=== PATIENT | female | born 1985 | race Caucasian/White ===

== ENCOUNTER 2018-02-04 12:11 | Emergency (ER) | payer BC ==
[~2018-02-04] VITALS: Ht 170.2 cm; Wt 117.9 kg
[2018-02-04] MEDS ORDERED: SERT25 (13:01)
[2018-02-04] MEDS ORDERED: METF500C (13:01)
[2018-02-04] MEDS ORDERED: TRULICITY0.75 MG/0. (13:01)
[2018-02-04] MEDS ORDERED: WALKING BOOT (14:02)
[2018-02-04] MEDS ORDERED: Norco 5-325 Ta1 EACH PO (14:02)
== END 2018-02-04 14:12 | disposition home or self-care (01) ==
LOC: ER 12:11
DX: S92.354A Nondisplaced fracture of fifth metatarsal bone, right foot, initial encounter for closed fracture (principal); W10.9XXA Fall (on) (from) unspecified stairs and steps, initial encounter
CPT/HCPCS: 73610; 73630; J1885

== ENCOUNTER → 2020-02-12 | Outpatient (CLI) | payer OTHER ==
[~2020-02-12] MED LIST: METF500C; Norco 5-325 Ta1 EACH PO; SERT25; TRULICITY0.75 MG/0.; WALKING BOOT
== END | disposition home or self-care (01) ==
LOC: LAB SHORT 12:31 → LAB EV 12:31
DX: R05 Cough (principal); Z20.828 Contact with and (suspected) exposure to other viral communicable diseases
CPT/HCPCS: U0003